=== PATIENT | male | born 1965 | race Caucasian/White ===

== ENCOUNTER 2017-09-02 20:34 | Inpatient (IN) | payer MEDICARE ==
[~2017-09-02] VITALS: Ht 188 cm; Wt 186.0 kg
--- NOTE | ~2017-09-02 | PR ---
[place], [place] PROGRESS NOTE NAME: BENSON LANDA UNIT #: [id number] ROOM: 501 DOCTOR: AARON LARA MD BIRTHDATE: [birth year] DOS: 09/06/2017 SUBJECTIVE: The patient denies any fever or chills. No nausea, vomiting, tolerating IV antibiotics. CT images reviewed, discussed with the patient, waiting for placement. REVIEW OF SYSTEMS: A 10-point review of systems has been done. Pertinent negative and positive has been included in HPI, rest are noncontributory. PHYSICAL EXAMINATION: VITAL SIGNS: Noted stable. GENERAL: The patient is alert, oriented times 3, not in acute distress. HEENT: Atraumatic, normocephalic. PERRLA, EOMI. RESPIRATORY: Air entry bilaterally equal. No wheeze or crackles. CARDIOVASCULAR: S1, S2 normal. No murmur, rubs or gallop. ABDOMEN: Soft, nontender, nondistended. Bowel sounds present in 4 quadrants. EXTREMITIES: Bilateral lower extremity, extreme swelling secondary to chronic lymphedema. Right lower extremity around 3/5 cm irregular ulcer noted over the plantar aspect of the foot with relatively clean base nonfoul smelling surrounding cellulitis noted. Incision site, no drainage. No probe to bone is noted. NEUROLOGIC: Grossly intact. LABORATORY DATA AND IMAGING: Noted mentioned in HPI. ASSESSMENT AND PLAN: 1. Left foot ulcer, chronic, nonhealing with secondary bacterial infection with E. coli and MRSA. 2. Asymptomatic bacteriuria with Klebsiella pneumoniae. PLAN: At this time, discontinue IV of antibiotic, doxycycline 100 mg twice a day plus amoxicillin 875 mg p.o. b.i.d., both for 10 days. Scripts placed in the chart. No treatment for the urinary tract infection. The patient is supposed to go home and follow up with infectious disease clinic in [place] as well as podiatry. [place], [place] PROGRESS NOTE NAME: BENSON LANDA UNIT #: [id number] ROOM: [facility] DOCTOR: AARON LARA MD BIRTHDATE: [birth year] Latia Lara MD CM:PNTRANS [id number] AARON LARA MD 09/07/176 interface
--- NOTE | ~2017-09-02 | PR ---
[place], [place] PROGRESS NOTE NAME: BENSON LANDA [id number] UNIT #: [id number] ROOM: 501 DOCTOR: AARON LARA MD BIRTHDATE: [birth year] DOS: 09/05/2017 SUBJECTIVE: Currently, the patient denies any fever or chills. No nausea or vomiting, no diarrhea. He has been tolerating IV antibiotics. He underwent a CT of his right foot without contrast as he was unable to fit in the MRI machine. REVIEW OF SYSTEMS: A 10-point review of systems has been done. Pertinent negative positives has included in HPI, rest are noncontributory. PHYSICAL EXAMINATION: VITAL SIGNS: Current vitals include temperature of 98.4, pulse rate of 67, respiratory rate 18, blood pressure 137/79, oxygen saturation of 96% on room air. GENERAL: The patient is alert, oriented x 3, not in acute distress. HEENT: Atraumatic, normocephalic. PERRLA, EOMI. RESPIRATORY: Air entry bilaterally equal. No wheeze or crackles. CARDIOVASCULAR: S1, S2 normal, no murmurs, rubs or gallops. ABDOMEN: Soft, nontender, nondistended. Bowel sounds present in 4 quadrants. EXTREMITIES: Bilateral lower extremities, extreme swelling secondary to chronic lymphedema. Right lower extremity around 3/5 cm irregular ulcer noted over the plantar aspect of the foot with relatively cleanly-based non-foul smelling surrounding cellulitis noted. Incision site, no drainage. No [id number] is noted. NEUROLOGIC: Grossly intact. LABORATORY DATA: WBC count of 5.7, hemoglobin of 11.7, platelets 212, creatinine 1.4, GFR more than 60. IMAGING: Noted and mentioned in HPI. Imaging noted of the foot CT showing advanced degenerative changes of the foot with multifocal chronic deformities or joint effusion. No distinct abscess or acute osseous erosions identified to suggest osteomyelitis. Suggested MRI. ASSESSMENT: 1. Left foot ulcer, chronic, nonhealing with secondary bacterial infection. Wound cultures from September 02 had Gram stain with no WBCs, gram-positive cocci in pairs and clusters, few negative bacilli, finalized as methicillin-resistant Staphylococcus aureus and Escherichia coli. CT scan of the foot, although without contrast shows degenerative changes. 2. Suspected urinary tract infection. Urinalysis shows pyuria. Urine cultures, Klebsiella pneumoniae, pansensitive. PLAN: At this time, the ulcer has minimal depth, no probe to bone. Chronic degenerative changes seen in the CT scan could be old. He has a history of treatment with acute osteomyelitis in [place] with multiple antibiotics for a longer duration 3-4 years ago. No details available at this time. At this time, I will treat his skin and soft tissue infection while Staph aureus. He is currently on vancomycin. We will choose doxycycline 100 mg twice [place], [place] PROGRESS NOTE NAME: BENSON LANDA [facility] [id number] UNIT #: [id number] ROOM: [facility] [place] DOCTOR: MARCO CORNEJO,AARON BIRTHDATE: [birth year] a day plus amoxicillin 875 mg twice 2 weeks, needs proper wound care, offloading, close follow up with Podiatry and Infectious Disease. For his UTI, also the patient is on amoxicillin and his Klebsiella pneumoniae is pansensitive. Rest of the medical management plus primary team. Latia Lara MD CM:PNTRANS AARON LARA MD 09/06/1748 interface
--- NOTE | ~2017-09-02 | EKG ---
[place], [place] ELECTROCARDIOGRAM REPORT NAME: BENSON LANDA UNIT #: [id number] [place]: [facility] [facility] [place] DOCTOR: NIA CORNEJO,ALEX BIRTHDATE: [birth year] DOS: 09/02/2017 TIME: 2100 hours. IMPRESSION: 1. Sinus rhythm. 2. Poor R wave progression. 3. Left axis deviation. 4. Baseline artifacts. 5. Normal QT interval. ALEX KRAMER MD CM:EKGRPT:ELECTROCARDIOGRAM REPORT [id number] ALEX KRAMER MD
--- NOTE | ~2017-09-02 | CON ---
[place], [place] REPORT OF CONSULTATION NAME: [facility]SON LANDA [id number] UNIT #: [id number] ROOM: [facility] DOCTOR: GERTRUDE HATFIELD DPM BIRTHDATE: [birth year] DOS: 09/03/2017 SUBJECTIVE: The patient presents as a 51-year-old male with chief complaint of an ulceration to plantar right foot. The patient had been a patient at our office with Dr. Salazar. The patient thinks the ulceration at the bottom of the foot started in June; however, he stated it did not ulcerate until July. When asking the patient why he did not have the ulceration checked sooner, he stated he did not want to go into the hospital. The patient has a history of noncompliance. PAST MEDICAL HISTORY: Arterial occlusion of lower extremity, asthma, diabetic neuropathy, history of osteomyelitis, history of pulmonary embolism, hyperlipidemia, hypertension, morbid obesity, BMI of 50 to 59.9, osteoarthritis of right knee, type 2 diabetes, hyperglycemia. PAST SURGICAL HISTORY: Foot surgery. SOCIAL HISTORY: Denies alcohol, illicit drug use or smoking. FAMILY HISTORY: Father at age 77 of lung CA. Mother, history of dementia, at age 73. ALLERGIES: History of allergies to SULFA from BACTRIM and TRIMETHOPRIM from BACTRIM, which caused swelling. PHYSICAL EXAMINATION: LOWER EXTREMITY EXAMINATION: Pedal pulses diminished. Decreased epicritic sensations. Ulceration noted to the plantar aspect of the right foot, extending from the heel to the MPJs. The ulceration has minimal depth, is fibrotic in nature. There is localized erythema. There are no signs of fluctuance, no signs of abscess, no signs of purulent drainage or sinus tract. The patient has +3 edema, bilateral lower extremity. ASSESSMENT: Right foot cellulitis with chronic diabetic foot ulceration and infection. PLAN: Evaluation and management. Infectious Disease has the patient on vancomycin and Zosyn. We will continue with local wound care. Ordered MRI of both the foot and ankle due to the length of the ulceration encompassing the forefoot and rearfoot. We will see the patient tomorrow or Tuesday depending on when the results of the MRI are done and formulate treatment plan accordingly. I had a long discussion with the patient that he is at high risk for limb loss due to his noncompliance and ignoring the ulcerations. I discussed with the patient he should have had the ulceration seen as soon as it developed and he is putting his foot and lower extremity at risk for amputation. The patient verbalized that he understood this. The patient's venous Doppler was negative for DVT. Arterial Doppler was ordered, but the results are not available at this present time. Again, the radiographs showed extensive chronic changes, but no definitive acute cortical bone destruction. However, due to the long-standing ulceration, we will obtain MRIs for further evaluation and treat [place], [place] REPORT OF CONSULTATION NAME: BENSON LANDA [place] UNIT #: [id number] ROOM: [facility] DOCTOR: GERTRUDE HATFIELD DPM BIRTHDATE: [birth year] the patient accordingly. GERTRUDE HATFIELD DPM CM:CONSTR:REPORT OF CONSULTATION 03 09/03/171926 interface
--- NOTE | ~2017-09-02 | PR ---
[place], [place] PROGRESS NOTE NAME: BENSON LANDA [facility] #: [id number] UNIT #: [id number] ROOM: [facility] DOCTOR: GERTRUDE HATFIELD DPM BIRTHDATE: [birth year] DOS: 09/06/2017 SUBJECTIVE: The patient was seen for a followup of ulceration with cellulitis, plantar right foot. OBJECTIVE: Ulceration, plantar, right foot x 2; plantar arch approximately 5 cm x 2 cm and 1-cm ulceration proximally. No signs of purulent drainage or foul odor. There was local granular base noted. No signs of sinus tract or abscess. Results of the CT scan of the right foot revealed advanced degenerative changes of the foot with multifocal chronic deformities and joint effusion. No distinct abscess or acute osseous erosion. No signs of osteomyelitis. Right ankle CT revealed diffuse soft tissue swelling of the ankle with degenerative change. No underlying osteomyelitis. ASSESSMENT: Cellulitis and ulceration, plantar aspect, right foot. PLAN: Continue local wound care, continue antibiotics per Infectious Disease. Reviewed the results with the patient. The patient does not require surgical intervention at this time. We will continue conservative local wound care and will be seen by Dr. Salazar tomorrow. GERTRUDE HATFIELD DPM CM:MARINO [id number] GERTRUDE HATFIELD DPM 09/06/172233 interface
--- NOTE | ~2017-09-02 | CON ---
[place], [place] REPORT OF CONSULTATION [id number] UN[facility] #: [id number] ROOM: [facility] DOCTOR: ELEAZAR ROBBINS,SEPTEMBER BIRTHDATE: [birth year] DOS: HISTORY OF PRESENT ILLNESS: The patient is a 51-year-old morbidly obese male who was admitted from home with right foot swelling, erythema and foul odor. He was started on vancomycin and Zosyn for right diabetic foot infection. He has had prior issues and had debridement and resection of bilateral calcaneus previously some time ago. He states he was seen by fur weigher in June, who shaved down his callus and he eventually ended up with an open wound over the right plantar portion of his foot. He was previously following with Dr. Conteh in the wound clinic possibly in May. He has had no fevers or chills, but came in due to worsening odor from the foot that did not resolve with cleaning. ID is consulted for right foot cellulitis and diabetic foot infection. He has had an ultrasound of the lower extremities that was negative for DVT. It appears arterial Doppler studies are already ordered. PAST MEDICAL HISTORY: As above as well as prior arterial occlusion in the lower extremity, asthma, diabetic neuropathy, osteomyelitis, PE, hyperlipidemia, hypertension, morbid obesity, osteoarthritis of right knee, diabetes for at least 18 years. SOCIAL HISTORY: Nonsmoker, nondrinker, no illicit drug use. FAMILY MEDICAL HISTORY: Father from lung cancer at the age of 77. Mother at the age of 73 from dementia. ALLERGIES: Include BACTRIM. CURRENT MEDICATIONS: Procardia, Zanaflex, Hytrin, Zestril, Imdur, Levemir, heparin, Neurontin, Catapres, Coreg, vancomycin, Zosyn, Restoril, Dulcolax, Payne, Tylenol. LABORATORY DATA: Wound culture from the right foot Gram stain with Gram-positive cocci in clusters and Gram-negative rods. Culture is pending. Blood and urine cultures negative thus far. WBC 6.6, platelets 205, BUN 12, creatinine 1.18. LFTs within normal limits. C-reactive protein 0.41. Lactic acid 1.8. REVIEW OF SYSTEMS: As above in history of present illness. No fevers or chills. No nausea, vomiting, no diarrhea, no rash or itch. No cough or shortness of breath. No headache or dizziness. No chest pain. He does have peripheral neuropathy. Denies any pain. He did approximately 4 weeks ago have fevers and chills for approximately 4 days and onset of upper respiratory symptoms. He continues with occasional nonproductive cough. Has chronic significant lower extremity edema as well as deformity of the lower extremities due to Charcot foot deformity and prior surgeries. Further review of systems unremarkable. [place], [place] REPORT OF CONSULTATION NAME: BENSON LANDA UNIT #: [id number] ROOM: [facility] DOCTOR: ELEAZAR ROBBINS,SEPTEMBER BIRTHDATE: [birth year] PHYSICAL EXAMINATION: VITAL SIGNS: Temperature 98.2, pulse 80, respirations 20, BP 156/82. GENERAL: A 51-year-old morbidly obese, pleasant, male in no acute distress. HEAD, EYES, NOSE AND THROAT: Normocephalic, no thrush. NECK: Supple. LUNGS: Clear to auscultation bilaterally. Respirations even and unlabored. HEART: Regular rhythm. No murmur appreciated. ABDOMEN: Soft, obese, nontender, no masses. EXTREMITIES: +3 to 4 edema bilateral lower extremities. Right plantar foot with moderate size superficial wounds, pale, pink and fibrotic, minimal depth, has surrounding erythema of the plantar portion of the foot. Skin is otherwise, warm, dry, free of rashes. He is missing his right fifth toe and has scarring on both feet. ASSESSMENT: Right foot cellulitis and diabetic foot ulcer infection. PLAN: Continue vancomycin and Zosyn. Follow up on his wound culture. Dr. Euceda has been consulted. Would recommend Santyl dressing until he is seen by podiatry; however, Santyl is unavailable; therefore, we will use Medihoney dressing and cover with Mepilex daily until seen by podiatry. We would recommend MRI given the chronicity of the wound on Tuesday when available to evaluate for possible osteomyelitis. Continue the vancomycin and Zosyn. Case discussed with Dr. Michael Benson. ADDENDUM After reviewing the chart, labs and microbiology, I agree with the above plans as described on the patient. We will follow the patient up clinically and adjust accordingly. SEPTEMBER ROSENDO BUSH MICHAEL BENSON MD CM:CONSTR:REPORT OF CONSULTATION 1546 09/04/17 0216 interface
[~2017-09-02 20:34] MED LIST: ALAVERT10 M1 PO; AVINZA PO; AVINZA45 MG PO; BISOPROLOL5 MG PO; CLONIDINE0.3 MG PO; COLACE100 MG PO; COREG12.5 MG PO; COREG25 MG PO; ENALAPRIL10 MG PO; FUROSEMIDE20 MG PO; GABAPENTIN100 M1 PO; GLIPIZIDE XL10 MG PO; HYDRALAZINE100 MG PO; HYDROCHLOROTHIA25 MG PO; INSULIN R; K-DUR 20MEQ20 MEQ PO; LISINOPRIL/HCTZ1 TA1 PO; METFORMIN500 MG PO; MS CONTIN30 MG PO; NORVASC10 MG PO; NORVASC5 MG PO; NOVOLOG 701 UNIT/0.0 SC; PERCOCET 325 MG1 TA7 PO; PHOSLO667 M1 PO; PRAVACHOL20 MG PO; PRINIVIL20 M1 PO; SPIRONOLACTONE25 MG PO; TERAZOSIN HCL5 M1 PO; VICODIN 5/500 505 MG PO; ZEBETA5 MG PO
[2017-09-02 20:35] VITALS: BP 172/85
[2017-09-02] MEDS ORDERED: 'CLONIDINE0.1 MG PO (20:41)
[2017-09-02] MEDS ORDERED: NOVOLOG FL100 UNIT/1 SQ (20:41)
[2017-09-02] MEDS ORDERED: NIFEDIPINE ER30 M1 PO (20:42)
[2017-09-02] MEDS ORDERED: ALDACTONE25 MG PO (20:42)
[2017-09-02] MEDS ORDERED: LISINOPRIL20 MG PO (20:42)
[2017-09-02] MEDS ORDERED: IMDUR SA60 M1 PO (20:42)
[2017-09-02] MEDS ORDERED: METFORMIN HCL1000 MG PO (20:43)
[2017-09-02] MEDS ORDERED: GABAPENTIN100 M2 PO (20:43)
[2017-09-02] MEDS ORDERED: FUROSEMIDE80 MG PO (20:43)
[2017-09-02] MEDS ORDERED: GLIPIZIDE5 MG PO (20:43)
[2017-09-02] MEDS ORDERED: TIZANIDINE HCL2 MG PO (20:44)
[2017-09-02] MEDS ORDERED: CARVEDILOL12.5 MG PO (20:44)
[2017-09-02] MEDS ORDERED: LEVEMIR FL100 UNIT/1 SQ (20:45)
[2017-09-02 21:37] LABS: ACT PARTIAL THROMBO TIME 20.6 SECONDS (20.8-31.5); INTERNATIONAL NORM RATIO 0.9 (2.0-3.5)
[2017-09-02 21:40] LABS: ALBUMIN 2.5 gm/dl (3.1-4.5); ALKALINE PHOSPHATASE 72 U/L (45-117); BUN 13 mg/dl (7-24); CHLORIDE 106 mmol/L (98-107); CREATININE 1.42 mg/dL (0.70-1.30); POTASSIUM 4.3 mmol/L (3.5-5.1); SGOT/AST 45 IU/L (3-35); SGPT/ALT 49 U/L (12-78); SODIUM 139 mmol/L (136-145); TOTAL PROTEIN 6.9 gm/dL (6.4-8.2)
[2017-09-02 21:42] LABS: TROPONIN I < 0.015 ng/ml (<0.045)
[2017-09-02 21:46] LABS: THYROID STIM HORMONE (HS) 0.912 uIU/ml (0.358-4.75)
[2017-09-02 22:06] LABS: BASO % 0.4 % (0.0-1.0); EOS # 0.2 10*3/uL (0.0-0.4); EOS % 3.2 % (1.0-4.0); HEMATOCRIT 35.6 % (42.0-52.0); HEMOGLOBIN 12.2 g/dl (14.0-18.0); LYMPH # 1.6 10*3/uL (1.3-4.4); LYMPH % 20.8 % (27.0-41.0); MEAN CELL VOLUME 96.5 fl (80.0-94.0); MEAN CORPUSCULAR HGB 33.1 pg (27.0-31.0); MEAN CORPUSCULAR HGB CONC 34.3 g/dl (33.0-37.0); MEAN PLATELET VOLUME 10.5 fl (9.6-12.3); MONO # 0.4 10*3/uL (0.1-1.0); MONO % 5.8 % (3.0-9.0); NEUT # 5.1 10*3/uL (2.3-7.9); NEUT % 68.9 % (47.0-73.0); PLATELET COUNT AUTOMATED 237 10*3/uL (130-400); RED BLOOD COUNT 3.69 10*6/uL (4.50-5.90); RED CELL DISTRI WIDTH 12.9 % (0-14.5); WHITE BLOOD COUNT 7.5 10*3/uL (4.8-10.8)
[2017-09-02 22:09] VITALS: BP 154/93
[2017-09-02 22:13] LABS: BILIRUBIN NEGATIVE (NEGATIVE); BLOOD 2+ (NEGATIVE); CLARITY CLOUDY (CLEAR); COLOR YELLOW (YELLOW); GLUCOSE 1+ (NEGATIVE); KETONE NEGATIVE (NEGATIVE); LEUKO ESTERASE 1+ (NEGATIVE); NITRITE NEGATIVE (NEGATIVE); SPECIFIC GRAVITY 1.025 (1.005-1.030); UROBILINOGEN 0.2 E.U./dl (0.2-1.0)
[2017-09-02 22:18] LABS: BACTERIA 2+; EPITHELIAL CELLS 0-2; RBC TNTC rbc/hpf (0-2); WBC TNTC wbc/hpf (0-5)
[2017-09-02 22:21] LABS: URINE AMPHETAMINES < 1000 (1000ng/ml); URINE BARBITURATES < 200 (200ng/ml); URINE BENZODIAZEPINES < 200 (200ng/ml); URINE CANNABINOIDS (THC) < 50 (50ng/ml); URINE COCAINE < 300 (300ng/ml); URINE METHADONE < 300 (300ng/ml); URINE OPIATES < 300 (300ng/ml); URINE PHENCYCLIDINE < 25 (25ng/ml)
[2017-09-02 22:30] VITALS: BP 154/93
[2017-09-02] MEDS ORDERED: LISINOPRIL30 MG PO (22:50)
[2017-09-02] MEDS ORDERED: ISOSORBIDE MON120 MG PO (22:56)
[2017-09-02] MEDS ORDERED: NUCYNTA100 MG PO (23:03)
[2017-09-02] MEDS ORDERED: MORPHINE SULFAT20 M2 PO (23:05)
[2017-09-02] MEDS ORDERED: TERAZOSIN5 MG PO (23:09)
[2017-09-03 06:04] LABS: BASO % 0.6 % (0.0-1.0); EOS # 0.3 10*3/uL (0.0-0.4); HEMATOCRIT 33.9 % (42.0-52.0); HEMOGLOBIN 11.3 g/dl (14.0-18.0); LYMPH # 1.6 10*3/uL (1.3-4.4); LYMPH % 24.1 % (27.0-41.0); MEAN CELL VOLUME 96.9 fl (80.0-94.0); MEAN CORPUSCULAR HGB 32.3 pg (27.0-31.0); MEAN CORPUSCULAR HGB CONC 33.3 g/dl (33.0-37.0); MEAN PLATELET VOLUME 9.9 fl (9.6-12.3); MONO # 0.4 10*3/uL (0.1-1.0); MONO % 5.9 % (3.0-9.0); NEUT # 4.2 10*3/uL (2.3-7.9); NEUT % 64.2 % (47.0-73.0); PLATELET COUNT AUTOMATED 205 10*3/uL (130-400); RED CELL DISTRI WIDTH 13.1 % (0-14.5); WHITE BLOOD COUNT 6.6 10*3/uL (4.8-10.8)
[2017-09-03 06:17] LABS: ALBUMIN 2.2 gm/dl (3.1-4.5); BUN 12 mg/dl (7-24); CHLORIDE 110 mmol/L (98-107); CHOLESTEROL 86 mg/dL (<200); CREATININE 1.18 mg/dL (0.70-1.30); PHOSPHOROUS 2.9 mg/dL (2.5-4.9); POTASSIUM 3.7 mmol/L (3.5-5.1); SGOT/AST 31 IU/L (3-35); SGPT/ALT 43 U/L (12-78); SODIUM 141 mmol/L (136-145); TRIGLYCERIDES 116 mg/dl (<150); VLDL CHOLESTEROL 23 mg/dL (6-40)
[2017-09-03 06:24] LABS: ALKALINE PHOSPHATASE 63 U/L (45-117); FREE T4 1.24 ng/dl (0.76-1.46); HDL CHOLESTEROL 31 mg/dl (40-60); LDL CHOLESTEROL 32 mg/dL (9-159); TOTAL PROTEIN 6.2 gm/dL (6.4-8.2)
[2017-09-03 07:35] LABS: VITAMIN D, 25-HYDROXY 26.6 ng/mL (30-100)
[2017-09-03 08:00] VITALS: BP 156/82
[2017-09-03 12:00] VITALS: BP 135/58
[2017-09-03 16:00] VITALS: BP 143/74
[2017-09-03 20:00] VITALS: BP 153/78
[2017-09-04 00:14] VITALS: BP 111/88
[2017-09-04 08:00] VITALS: BP 151/67
[2017-09-04 08:28] LABS: BASO % 0.5 % (0.0-1.0); EOS # 0.4 10*3/uL (0.0-0.4); EOS % 6.4 % (1.0-4.0); HEMATOCRIT 34.4 % (42.0-52.0); HEMOGLOBIN 11.6 g/dl (14.0-18.0); LYMPH # 1.8 10*3/uL (1.3-4.4); LYMPH % 29.7 % (27.0-41.0); MEAN CELL VOLUME 96.6 fl (80.0-94.0); MEAN CORPUSCULAR HGB 32.6 pg (27.0-31.0); MEAN CORPUSCULAR HGB CONC 33.7 g/dl (33.0-37.0); MEAN PLATELET VOLUME 9.6 fl (9.6-12.3); MONO # 0.3 10*3/uL (0.1-1.0); MONO % 5.4 % (3.0-9.0); NEUT # 3.4 10*3/uL (2.3-7.9); PLATELET COUNT AUTOMATED 202 10*3/uL (130-400); RED BLOOD COUNT 3.56 10*6/uL (4.50-5.90); RED CELL DISTRI WIDTH 12.8 % (0-14.5); WHITE BLOOD COUNT 5.9 10*3/uL (4.8-10.8)
[2017-09-04 08:40] LABS: BUN 12 mg/dl (7-24); CHLORIDE 107 mmol/L (98-107); CREATININE 1.38 mg/dL (0.70-1.30); SODIUM 138 mmol/L (136-145)
[2017-09-04 12:00] VITALS: BP 118/67
[2017-09-04 16:00] VITALS: BP 130/66
[2017-09-04 20:00] VITALS: BP 130/66
[2017-09-05] VITALS: BP 144/80
[2017-09-05 06:37] LABS: BASO % 0.7 % (0.0-1.0); EOS # 0.3 10*3/uL (0.0-0.4); EOS % 5.8 % (1.0-4.0); HEMATOCRIT 35.1 % (42.0-52.0); HEMOGLOBIN 11.7 g/dl (14.0-18.0); LYMPH # 1.7 10*3/uL (1.3-4.4); LYMPH % 29.7 % (27.0-41.0); MEAN CORPUSCULAR HGB 32.3 pg (27.0-31.0); MEAN CORPUSCULAR HGB CONC 33.3 g/dl (33.0-37.0); MEAN PLATELET VOLUME 10.1 fl (9.6-12.3); MONO # 0.3 10*3/uL (0.1-1.0); MONO % 5.6 % (3.0-9.0); NEUT # 3.3 10*3/uL (2.3-7.9); NEUT % 56.8 % (47.0-73.0); PLATELET COUNT AUTOMATED 212 10*3/uL (130-400); RED BLOOD COUNT 3.62 10*6/uL (4.50-5.90); RED CELL DISTRI WIDTH 12.9 % (0-14.5); WHITE BLOOD COUNT 5.7 10*3/uL (4.8-10.8)
[2017-09-05 07:01] LABS: BUN 12 mg/dl (7-24); CHLORIDE 107 mmol/L (98-107); CREATININE 1.41 mg/dL (0.70-1.30); POTASSIUM 4.1 mmol/L (3.5-5.1); SODIUM 140 mmol/L (136-145)
[2017-09-05 08:00] VITALS: BP 146/79
[2017-09-05 12:00] VITALS: BP 148/80
[2017-09-05 16:00] VITALS: BP 144/78
[2017-09-05 20:00] VITALS: BP 137/79; BP 137/796
[2017-09-06] VITALS: BP 145/74
[2017-09-06 08:00] VITALS: BP 141/82
[2017-09-06 12:00] VITALS: BP 141/90
[2017-09-06 16:00] VITALS: BP 138/64
[2017-09-06 20:00] VITALS: BP 142/64
[2017-09-07] VITALS: BP 152/78
[2017-09-07 06:33] LABS: POTASSIUM 4.6 mmol/L (3.5-5.1)
[2017-09-07 06:34] LABS: CREATININE 1.9 mg/dL (0.70-1.30)
[2017-09-07 08:00] VITALS: BP 139/72
[2017-09-07 12:00] VITALS: BP 139/72
[2017-09-07 13:25] LABS: CREATININE 1.83 mg/dL (0.70-1.30)
[2017-09-07] MEDS ORDERED: AMOXICILLIN875 MG PO (15:49)
[2017-09-07] MEDS ORDERED: DOXYCYCLINE MO100 M1 PO (15:49)
[2017-09-07] MEDS ORDERED: VITAMIN D-32000 UNIT PO (15:49)
[2017-09-07 16:00] VITALS: BP 146/74
[2017-09-07 20:00] VITALS: BP 116/84
[2017-09-08] VITALS: BP 141/69
[2017-09-08 07:12] LABS: BASO # 0.1 10*3/uL (0.0-0.1); BASO % 0.9 % (0.0-1.0); EOS # 0.3 10*3/uL (0.0-0.4); EOS % 4.7 % (1.0-4.0); HEMATOCRIT 35.9 % (42.0-52.0); HEMOGLOBIN 12.2 g/dl (14.0-18.0); LYMPH # 1.5 10*3/uL (1.3-4.4); LYMPH % 28.5 % (27.0-41.0); MEAN CELL VOLUME 96.8 fl (80.0-94.0); MEAN CORPUSCULAR HGB 32.9 pg (27.0-31.0); MEAN PLATELET VOLUME 9.5 fl (9.6-12.3); MONO # 0.3 10*3/uL (0.1-1.0); MONO % 5.5 % (3.0-9.0); NEUT # 3.1 10*3/uL (2.3-7.9); NEUT % 58.9 % (47.0-73.0); PLATELET COUNT AUTOMATED 200 10*3/uL (130-400); RED BLOOD COUNT 3.71 10*6/uL (4.50-5.90); RED CELL DISTRI WIDTH 13.1 % (0-14.5); WHITE BLOOD COUNT 5.3 10*3/uL (4.8-10.8)
[2017-09-08 07:29] LABS: BUN 18 mg/dl (7-24); CHLORIDE 105 mmol/L (98-107); CREATININE 1.39 mg/dL (0.70-1.30); POTASSIUM 4.5 mmol/L (3.5-5.1); SODIUM 136 mmol/L (136-145)
[2017-09-08 08:00] VITALS: BP 152/82
[2017-09-08 12:00] VITALS: BP 148/79
== END 2017-09-08 14:15 | disposition home or self-care (01) | DRG 871 ==
LOC: ED 20:34 → 5E 21:59 → EDHOLD 21:59 → 5E 22:06
PROVIDERS: Emergency Medicine Emergency Medical Services; Internal Medicine; Student in an Organized Health Care Education/Training Program
DX: A41.9 Sepsis, unspecified organism (principal); N17.0 Acute kidney failure with tubular necrosis; E43 Unspecified severe protein-calorie malnutrition; N39.0 Urinary tract infection, site not specified; Z68.43 Body mass index [BMI] 50.0-59.9, adult; L97.415 Non-pressure chronic ulcer of right heel and midfoot with muscle involvement without evidence of necrosis; L03.115 Cellulitis of right lower limb; L97.829 Non-pressure chronic ulcer of other part of left lower leg with unspecified severity; E11.621 Type 2 diabetes mellitus with foot ulcer; E11.49 Type 2 diabetes mellitus with other diabetic neurological complication; E66.01 Morbid (severe) obesity due to excess calories; R31.9 Hematuria, unspecified; R74.0 Nonspecific elevation of levels of transaminase and lactic acid dehydrogenase [LDH]; D53.9 Nutritional anemia, unspecified; R79.82 Elevated C-reactive protein (CRP); R80.9 Proteinuria, unspecified; R81 Glycosuria; I10 Essential (primary) hypertension; E11.65 Type 2 diabetes mellitus with hyperglycemia; Z79.4 Long term (current) use of insulin; E78.5 Hyperlipidemia, unspecified; M17.11 Unilateral primary osteoarthritis, right knee; J45.909 Unspecified asthma, uncomplicated; L97.519 Non-pressure chronic ulcer of other part of right foot with unspecified severity; B96.20 Unspecified Escherichia coli [E. coli] as the cause of diseases classified elsewhere; B95.62 Methicillin resistant Staphylococcus aureus infection as the cause of diseases classified elsewhere; B96.1 Klebsiella pneumoniae [K. pneumoniae] as the cause of diseases classified elsewhere; K59.00 Constipation, unspecified; Z88.8 Allergy status to other drugs, medicaments and biological substances; Z79.899 Other long term (current) drug therapy; Z86.711 Personal history of pulmonary embolism; Z82.49 Family history of ischemic heart disease and other diseases of the circulatory system; Z81.8 Family history of other mental and behavioral disorders; Z80.8 Family history of malignant neoplasm of other organs or systems; Z88.2 Allergy status to sulfonamides; Z79.01 Long term (current) use of anticoagulants

== ENCOUNTER → 2017-11-01 | Outpatient (CLI) | payer MEDICARE ==
[~2017-11-01] MED LIST changes: +'CLONIDINE0.1 MG PO; +ALDACTONE25 MG PO; +AMOXICILLIN875 MG PO; +CARVEDILOL12.5 MG PO; +DOXYCYCLINE MO100 M1 PO; +DOXYCYCLINE100 MG PO; +FUROSEMIDE80 MG PO; +GABAPENTIN100 M2 PO; +GLIPIZIDE5 MG PO; +IMDUR SA60 M1 PO; +ISOSORBIDE MON120 MG PO; +LEVEMIR FL100 UNIT/1 SQ; +LISINOPRIL20 MG PO; +LISINOPRIL30 MG PO; +METFORMIN HCL1000 MG PO; +MORPHINE SULFAT20 M2 PO; +NIFEDIPINE ER30 M1 PO; +NOVOLOG FL100 UNIT/1 SQ; +NUCYNTA100 MG PO; +TERAZOSIN5 MG PO; +TIZANIDINE HCL2 MG PO; +VITAMIN D-32000 UNIT PO
== END | disposition home or self-care (01) ==
LOC: RESCLI 04:31
DX: Z09 Encounter for follow-up examination after completed treatment for conditions other than malignant neoplasm (principal); E11.65 Type 2 diabetes mellitus with hyperglycemia; E11.621 Type 2 diabetes mellitus with foot ulcer; L97.519 Non-pressure chronic ulcer of other part of right foot with unspecified severity; I10 Essential (primary) hypertension; M79.2 Neuralgia and neuritis, unspecified; M54.9 Dorsalgia, unspecified; G89.29 Other chronic pain; N40.0 Benign prostatic hyperplasia without lower urinary tract symptoms; R60.9 Edema, unspecified; E55.9 Vitamin D deficiency, unspecified; E66.01 Morbid (severe) obesity due to excess calories; Z79.4 Long term (current) use of insulin

== ENCOUNTER 2017-11-18 14:53 | Inpatient (IN) | payer MEDICARE ==
[~2017-11-18] VITALS: Ht 188 cm; Wt 181.4 kg
--- NOTE | ~2017-11-18 | CON ---
[place], [place] REPORT OF CONSULTATION NAME: BENSON LANDA UNIT #: [id number] ROOM: 518 DOCTOR: LIU TOUREGERTRUDE J BIRTHDATE: [birth year] DOS: 11/19/2017 SUBJECTIVE: The patient presents as a 51-year-old male with a chief complaint of diabetic ulceration to the plantar right foot. The patient was treated previously inhouse and was followed with Dr. Conteh at the office, but has not returned to the office in approximately 2 months. The patient states that the ulceration has not healed since his last admission. Current visit medical problems, acute renal failure, macrocytic anemia, elevated C-reactive protein, elevated sed rate, hyperkalemia, hyponatremia, right foot ulcer, severe protein-calorie malnutrition. PAST MEDICAL PROBLEMS: Arterial occlusion lower extremity, asthma, diabetic neuropathy, history of osteomyelitis, history of pulmonary embolism, hyperlipidemia, hypertension, morbid obesity, osteoarthritis of right knee, type 2 diabetes with hyperglycemia with long-term use of insulin. PAST SURGICAL HISTORY: History of foot surgery. SOCIAL HISTORY: Denies illicit drug use, alcohol or smoking. FAMILY HISTORY: Father at age 77 of lung cancer. Mother at age 73. ALLERGIES: To BACTRIM. PHYSICAL EXAMINATION: EXTREMITIES: Lower extremity examination: Pedal pulses decreased. There is edema, lymphedema to bilateral lower extremities. Decreased epicritic sensations, ulcerations x 2 plantar right arch are full thickness to subcutaneous tissue level. No signs of fluctuance. No signs of deep sinus tract, no signs of acute abscess. Results of the radiographs taken of the right foot revealed advanced degenerative and chronic deformities of the right foot with extensive soft tissue swelling. No definitive erosion noted. ASSESSMENT: Diabetic ulcerations with localized cellulitis, plantar right foot; history of peripheral vascular disease; diabetic neuropathy. PLAN: Evaluation and management. Ordered Bactroban and gauze dressings to be applied daily. Ordered CT scan to compare to previous exam to rule out underlying osteomyelitis. Ordered arterial Doppler bilateral. The patient's previous exam was performed on 09/03/2017 revealed no significant stenotic proximal lesion, severe foot osteosclerosis left. Also ordered venous Doppler bilateral lower extremity. The patient will be seen for followup with Dr. Conteh on Tuesday. [place], [place] REPORT OF CONSULTATION NAME: BENSON LANDA UNIT #: [id number] ROOM: 518 DOCTOR: GERTRUDE HATFIELD DPM BIRTHDATE: [birth year] GERTRUDE HATFIELD DPM CM:CONSTR:REPORT OF CONSULTATION 1101 11/19/17 1201 interface
--- NOTE | ~2017-11-18 | PR ---
[place], [place] PROGRESS NOTE [facility]: [id number] UN[facility] #: [id number] ROOM: 518 DOCTOR: GERTRUDE HATFIELD DPM BIRTHDATE: [birth year] DOS: 11/22/2017 SUBJECTIVE: The patient was seen for followup of chronic plantar right foot ulceration. OBJECTIVE: The ulceration of plantar right foot x 2 are granular and clean. No signs of purulent drainage or foul odor. CT was negative for osteomyelitis. No significant change from previous CT performed in September. ASSESSMENT: Chronic diabetic ulcerations, plantar right foot. PLAN: Evaluation and management. Continue local wound care and offloading. The patient will reappoint for continued care at [facility] with Dr. Conteh. GERTRUDE HATFIELD DPM CM:MARINO [id number] GERTRUDE HATFIELD DPM 11/22/17 1528 interface
--- NOTE | ~2017-11-18 | PR ---
[place], [place] PROGRESS NOTE NAME: BENSON LANDA [facility] #: [id number] UNIT #: [id number] ROOM: 518 DOCTOR: LUCA DASH DPM BIRTHDATE: [birth year] DOS: 11/21/2017 SUBJECTIVE: The patient is seen for followup of a chronic plantar right foot ulcer. I had last seen the patient at the beginning of September, about 2-3 months ago. He never followed up. He was apparently admitted to the hospital and Dr. Euceda saw him on Tuesday. He denies any pain at this time in the foot. OBJECTIVE: Neurovascular status is unchanged. Chronic dependent edema noted bilaterally with negative Homans sign. Plantar right foot has two ulcerations that are actually fairly clean and granular. There are into subcutaneous tissue. No deep sinus tracts. No fluctuance or signs of abscess. No increased temperature. Actually, the foot ulcers are chronic, but they do not look clinically infected. A CT scan was negative for osteomyelitis. ASSESSMENT: Chronic diabetic foot ulcers, right foot; diabetic neuropathy. PLAN: Evaluation and management. Continue with local wound care daily. Continue offloading. Review of CT scan results. We will continue to do wound care while at the hospital to be followed up tomorrow for reevaluation. LUCA DASH DPM CM:MARINO [id number] LUCA DASH DPM 11/28/17 0839 interface
[~2017-11-18 14:53] MED LIST changes: -DOXYCYCLINE100 MG PO
[2017-11-18 14:57] VITALS: BP 136/70
[2017-11-18 16:39] LABS: BASO % 0.5 % (0.0-1.0); EOS # 0.2 10*3/uL (0.0-0.4); EOS % 2.6 % (1.0-4.0); HEMATOCRIT 36.5 % (42.0-52.0); HEMOGLOBIN 12.4 g/dl (14.0-18.0); LYMPH # 1.7 10*3/uL (1.3-4.4); LYMPH % 20.7 % (27.0-41.0); MEAN CELL VOLUME 98.4 fl (80.0-94.0); MEAN CORPUSCULAR HGB 33.4 pg (27.0-31.0); MEAN PLATELET VOLUME 10.3 fl (9.6-12.3); MONO # 0.5 10*3/uL (0.1-1.0); MONO % 6.2 % (3.0-9.0); NEUT # 5.6 10*3/uL (2.3-7.9); NEUT % 69.4 % (47.0-73.0); PLATELET COUNT AUTOMATED 209 10*3/uL (130-400); RED BLOOD COUNT 3.71 10*6/uL (4.50-5.90); RED CELL DISTRI WIDTH 12.8 % (0-14.5); WHITE BLOOD COUNT 8.1 10*3/uL (4.8-10.8)
[2017-11-18 16:50] LABS: INTERNATIONAL NORM RATIO 0.9 (2.0-3.5)
[2017-11-18 16:51] LABS: ALBUMIN 2.8 gm/dl (3.1-4.5); CREATININE 1.91 mg/dL (0.70-1.30); POTASSIUM 5.2 mmol/L (3.5-5.1); TOTAL PROTEIN 6.9 gm/dL (6.4-8.2)
[2017-11-18 18:30] VITALS: BP 145/80
[2017-11-18 20:00] VITALS: BP 145/80
[2017-11-18] MEDS ORDERED: VITAMIN D-32000 UNIT PO (22:37)
[2017-11-19] VITALS: BP 121/54
[2017-11-19 08:00] VITALS: BP 128/88
[2017-11-19 09:17] LABS: BASO % 0.8 % (0.0-1.0); EOS # 0.2 10*3/uL (0.0-0.4); EOS % 4.4 % (1.0-4.0); HEMOGLOBIN 12.5 g/dl (14.0-18.0); LYMPH % 19.5 % (27.0-41.0); MEAN CORPUSCULAR HGB 32.9 pg (27.0-31.0); MEAN CORPUSCULAR HGB CONC 32.9 g/dl (33.0-37.0); MONO # 0.3 10*3/uL (0.1-1.0); MONO % 6.1 % (3.0-9.0); NEUT # 3.6 10*3/uL (2.3-7.9); NEUT % 68.6 % (47.0-73.0); PLATELET COUNT AUTOMATED 176 10*3/uL (130-400); RED CELL DISTRI WIDTH 12.8 % (0-14.5); WHITE BLOOD COUNT 5.3 10*3/uL (4.8-10.8)
[2017-11-19 09:42] LABS: CREATININE 1.63 mg/dL (0.70-1.30); FREE T4 1.2 ng/dl (0.76-1.46); PHOSPHOROUS 3.7 mg/dL (2.5-4.9); POTASSIUM 5.3 mmol/L (3.5-5.1)
[2017-11-19 09:49] LABS: THYROID STIM HORMONE (HS) 2.06 uIU/ml (0.358-4.75)
[2017-11-19 10:20] LABS: VITAMIN D, 25-HYDROXY 19.8 ng/mL (30-100)
[2017-11-19 12:00] VITALS: BP 132/77
[2017-11-19 12:32] LABS: CLARITY CLOUDY (CLEAR); COLOR YELLOW (YELLOW); GLUCOSE TRACE (NEGATIVE)
[2017-11-19 12:33] LABS: BILIRUBIN NEGATIVE (NEGATIVE); BLOOD 1+ (NEGATIVE); KETONE NEGATIVE (NEGATIVE); SPECIFIC GRAVITY 1.015 (1.005-1.030)
[2017-11-19 12:34] LABS: LEUKO ESTERASE 1+ (NEGATIVE); NITRITE NEGATIVE (NEGATIVE); UROBILINOGEN 0.2 E.U./dl (0.2-1.0)
[2017-11-19 12:38] LABS: BACTERIA 3+; WBC TNTC wbc/hpf (0-5)
[2017-11-19 16:00] VITALS: BP 151/69
[2017-11-19 19:00] VITALS: BP 149/72
[2017-11-20] VITALS: BP 130/63
[2017-11-20 05:25] LABS: BASO % 0.5 % (0.0-1.0); EOS # 0.2 10*3/uL (0.0-0.4); EOS % 5.4 % (1.0-4.0); HEMATOCRIT 35.8 % (42.0-52.0); HEMOGLOBIN 12.1 g/dl (14.0-18.0); LYMPH # 0.9 10*3/uL (1.3-4.4); LYMPH % 21.2 % (27.0-41.0); MEAN CELL VOLUME 98.1 fl (80.0-94.0); MEAN CORPUSCULAR HGB 33.2 pg (27.0-31.0); MEAN CORPUSCULAR HGB CONC 33.8 g/dl (33.0-37.0); MEAN PLATELET VOLUME 10.2 fl (9.6-12.3); MONO # 0.3 10*3/uL (0.1-1.0); MONO % 7.5 % (3.0-9.0); NEUT # 2.8 10*3/uL (2.3-7.9); PLATELET COUNT AUTOMATED 155 10*3/uL (130-400); RED BLOOD COUNT 3.65 10*6/uL (4.50-5.90); RED CELL DISTRI WIDTH 12.7 % (0-14.5); WHITE BLOOD COUNT 4.3 10*3/uL (4.8-10.8)
[2017-11-20 05:54] LABS: ALBUMIN 2.4 gm/dl (3.1-4.5); CREATININE 1.53 mg/dL (0.70-1.30); PHOSPHOROUS 4.1 mg/dL (2.5-4.9); POTASSIUM 5.9 mmol/L (3.5-5.1)
[2017-11-20 06:22] LABS: VANCOMYCIN TROUGH 23.3 ug/mL (10-20)
[2017-11-20 08:00] VITALS: BP 127/64
[2017-11-20 12:00] VITALS: BP 136/66
[2017-11-20 12:11] LABS: CREATININE 1.52 mg/dL (0.70-1.30); POTASSIUM 5.5 mmol/L (3.5-5.1)
[2017-11-20 16:00] VITALS: BP 117/51
[2017-11-20 20:00] VITALS: BP 118/55
[2017-11-21] VITALS: BP 121/54
[2017-11-21 07:01] LABS: BASO % 0.4 % (0.0-1.0); EOS # 0.2 10*3/uL (0.0-0.4); EOS % 4.4 % (1.0-4.0); HEMOGLOBIN 12.1 g/dl (14.0-18.0); LYMPH # 1.3 10*3/uL (1.3-4.4); LYMPH % 25.6 % (27.0-41.0); MEAN CELL VOLUME 98.4 fl (80.0-94.0); MEAN CORPUSCULAR HGB 33.1 pg (27.0-31.0); MEAN CORPUSCULAR HGB CONC 33.6 g/dl (33.0-37.0); MEAN PLATELET VOLUME 9.8 fl (9.6-12.3); MONO # 0.4 10*3/uL (0.1-1.0); MONO % 7.1 % (3.0-9.0); NEUT # 3.1 10*3/uL (2.3-7.9); NEUT % 61.3 % (47.0-73.0); PLATELET COUNT AUTOMATED 178 10*3/uL (130-400); RED BLOOD COUNT 3.66 10*6/uL (4.50-5.90); RED CELL DISTRI WIDTH 13.1 % (0-14.5)
[2017-11-21 07:11] LABS: ALBUMIN 2.5 gm/dl (3.1-4.5); CREATININE 1.52 mg/dL (0.70-1.30); PHOSPHOROUS 3.6 mg/dL (2.5-4.9); POTASSIUM 5.3 mmol/L (3.5-5.1)
[2017-11-21 08:00] VITALS: BP 139/68
[2017-11-21 12:00] VITALS: BP 151/74
[2017-11-21 16:00] VITALS: BP 130/68
[2017-11-21 20:00] VITALS: BP 143/71
[2017-11-22] VITALS: BP 130/79
[2017-11-22 06:51] LABS: BUN 26 mg/dl (7-24); CHLORIDE 107 mmol/L (98-107); CREATININE 1.39 mg/dL (0.70-1.30); SODIUM 139 mmol/L (136-145)
[2017-11-22 08:00] VITALS: BP 158/79
[2017-11-22 12:00] VITALS: BP 152/75
[2017-11-22] MEDS ORDERED: VITAMIN D-32000 UNIT PO (15:01)
[2017-11-22] MEDS ORDERED: DOXYCYCLINE100 MG PO (15:01)
[2017-11-22 16:00] VITALS: BP 151/75
== END 2017-11-22 16:51 | disposition other institution (70) | DRG 871 ==
LOC: ED 14:53 → 5E 17:31 → EDHOLD 17:31 → 5E 17:58
PROVIDERS: Internal Medicine; Internal Medicine Hospice and Palliative Medicine; Physician Assistant
DX: A41.9 Sepsis, unspecified organism (principal); N17.0 Acute kidney failure with tubular necrosis; E43 Unspecified severe protein-calorie malnutrition; I74.3 Embolism and thrombosis of arteries of the lower extremities; E87.1 Hypo-osmolality and hyponatremia; L03.115 Cellulitis of right lower limb; L97.512 Non-pressure chronic ulcer of other part of right foot with fat layer exposed; E87.5 Hyperkalemia; D53.9 Nutritional anemia, unspecified; R79.82 Elevated C-reactive protein (CRP); R70.0 Elevated erythrocyte sedimentation rate; E66.01 Morbid (severe) obesity due to excess calories; E11.65 Type 2 diabetes mellitus with hyperglycemia; J45.909 Unspecified asthma, uncomplicated; E11.49 Type 2 diabetes mellitus with other diabetic neurological complication; E78.2 Mixed hyperlipidemia; E83.41 Hypermagnesemia; E11.621 Type 2 diabetes mellitus with foot ulcer; E11.51 Type 2 diabetes mellitus with diabetic peripheral angiopathy without gangrene; N18.3 Chronic kidney disease, stage 3 (moderate); I12.9 Hypertensive chronic kidney disease with stage 1 through stage 4 chronic kidney disease, or unspecified chronic kidney disease; E11.22 Type 2 diabetes mellitus with diabetic chronic kidney disease; Z22.322 Carrier or suspected carrier of Methicillin resistant Staphylococcus aureus; Z87.39 Personal history of other diseases of the musculoskeletal system and connective tissue; Z79.4 Long term (current) use of insulin; Z86.711 Personal history of pulmonary embolism; Z88.8 Allergy status to other drugs, medicaments and biological substances; Z88.2 Allergy status to sulfonamides; Z79.899 Other long term (current) drug therapy; Z80.1 Family history of malignant neoplasm of trachea, bronchus and lung; Z81.8 Family history of other mental and behavioral disorders; Z82.49 Family history of ischemic heart disease and other diseases of the circulatory system; Z88.1 Allergy status to other antibiotic agents

== ENCOUNTER → 2018-01-05 | Outpatient (CLI) | payer MEDICARE ==
[~2018-01-05] MED LIST changes: +DOXYCYCLINE100 MG PO
== END | disposition home or self-care (01) ==
LOC: RESCLI 03:39
DX: Z09 Encounter for follow-up examination after completed treatment for conditions other than malignant neoplasm (principal); I10 Essential (primary) hypertension; E11.65 Type 2 diabetes mellitus with hyperglycemia; L97.512 Non-pressure chronic ulcer of other part of right foot with fat layer exposed; N17.0 Acute kidney failure with tubular necrosis; E87.1 Hypo-osmolality and hyponatremia; E87.5 Hyperkalemia; G89.29 Other chronic pain; N40.0 Benign prostatic hyperplasia without lower urinary tract symptoms; E55.9 Vitamin D deficiency, unspecified; E66.01 Morbid (severe) obesity due to excess calories; M79.2 Neuralgia and neuritis, unspecified; M54.9 Dorsalgia, unspecified; R60.9 Edema, unspecified; Z79.4 Long term (current) use of insulin; Z79.899 Other long term (current) drug therapy; Z79.84 Long term (current) use of oral hypoglycemic drugs; Z88.8 Allergy status to other drugs, medicaments and biological substances

== ENCOUNTER → 2018-02-22 | Outpatient (CLI) | payer MEDICARE ==
[2018-02-22 15:19] LABS: CREATININE 1.85 mg/dL (0.70-1.30)
== END | disposition home or self-care (01) ==
LOC: LAB 13:21
PROVIDERS: Student in an Organized Health Care Education/Training Program
DX: I12.9 Hypertensive chronic kidney disease with stage 1 through stage 4 chronic kidney disease, or unspecified chronic kidney disease (principal); E11.22 Type 2 diabetes mellitus with diabetic chronic kidney disease; N18.3 Chronic kidney disease, stage 3 (moderate); N17.0 Acute kidney failure with tubular necrosis; E11.65 Type 2 diabetes mellitus with hyperglycemia; E66.01 Morbid (severe) obesity due to excess calories; Z79.4 Long term (current) use of insulin; Z79.899 Other long term (current) drug therapy

== ENCOUNTER → 2018-03-23 | Outpatient (CLI) | payer MEDICARE ==
[2018-03-23 15:51] LABS: CREATININE 1.74 mg/dL (0.70-1.30)
== END | disposition home or self-care (01) ==
LOC: RESCLI 02:41
PROVIDERS: Student in an Organized Health Care Education/Training Program
DX: I12.9 Hypertensive chronic kidney disease with stage 1 through stage 4 chronic kidney disease, or unspecified chronic kidney disease (principal); E11.22 Type 2 diabetes mellitus with diabetic chronic kidney disease; E11.65 Type 2 diabetes mellitus with hyperglycemia; N18.3 Chronic kidney disease, stage 3 (moderate); N40.0 Benign prostatic hyperplasia without lower urinary tract symptoms; G89.29 Other chronic pain; L97.512 Non-pressure chronic ulcer of other part of right foot with fat layer exposed; E55.9 Vitamin D deficiency, unspecified; E66.01 Morbid (severe) obesity due to excess calories; M79.2 Neuralgia and neuritis, unspecified; M54.9 Dorsalgia, unspecified; R60.9 Edema, unspecified; Z79.899 Other long term (current) drug therapy; Z79.4 Long term (current) use of insulin; Z79.84 Long term (current) use of oral hypoglycemic drugs; Z88.8 Allergy status to other drugs, medicaments and biological substances

== ENCOUNTER → 2018-06-13 | Outpatient (CLI) | payer MEDICARE ==
[2018-06-13 16:58] LABS: ALBUMIN 2.1 gm/dl (3.1-4.5); CREATININE 1.98 mg/dL (0.70-1.30); POTASSIUM 3.6 mmol/L (3.5-5.1)
== END | disposition home or self-care (01) ==
PROVIDERS: Internal Medicine
DX: I51.7 Cardiomegaly (principal); R06.02 Shortness of breath

== ENCOUNTER → 2018-10-26 | Outpatient (CLI) | payer MEDICARE ==
[2018-10-26 13:16] LABS: BASO % 0.6 % (0.0-1.0); EOS # 0.3 10*3/uL (0.0-0.4); EOS % 3.9 % (1.0-4.0); HEMOGLOBIN 13.2 g/dl (14.0-18.0); LYMPH # 1.6 10*3/uL (1.3-4.4); LYMPH % 22.6 % (27.0-41.0); MEAN CELL VOLUME 97.7 fl (80.0-94.0); MEAN CORPUSCULAR HGB 33.1 pg (27.0-31.0); MEAN CORPUSCULAR HGB CONC 33.8 g/dl (33.0-37.0); MEAN PLATELET VOLUME 10.4 fl (9.6-12.3); MONO # 0.4 10*3/uL (0.1-1.0); MONO % 5.6 % (3.0-9.0); NEUT # 4.7 10*3/uL (2.3-7.9); NEUT % 66.7 % (47.0-73.0); PLATELET COUNT AUTOMATED 203 10*3/uL (130-400); RED BLOOD COUNT 3.99 10*6/uL (4.50-5.90); RED CELL DISTRI WIDTH 12.6 % (0-14.5)
[2018-10-26 13:50] LABS: ALBUMIN 1.7 gm/dl (3.1-4.5); CREATININE 2.28 mg/dL (0.70-1.30); POTASSIUM 3.6 mmol/L (3.5-5.1); TOTAL PROTEIN 5.5 gm/dL (6.4-8.2)
[2018-10-26 14:29] LABS: VITAMIN D, 25-HYDROXY 17.1 ng/mL (30-100)
== END | disposition home or self-care (01) ==
LOC: RESCLI 01:26
PROVIDERS: Student in an Organized Health Care Education/Training Program
DX: N40.0 Benign prostatic hyperplasia without lower urinary tract symptoms (principal); I10 Essential (primary) hypertension; E55.9 Vitamin D deficiency, unspecified; M79.2 Neuralgia and neuritis, unspecified; M19.90 Unspecified osteoarthritis, unspecified site; Z79.899 Other long term (current) drug therapy; Z79.4 Long term (current) use of insulin

== ENCOUNTER → 2018-11-29 | Outpatient (CLI) | payer MEDICARE, MEDICAID | END | disposition home or self-care (01) | LOC: RESCLI 00:05 | DX: N40.0 Benign prostatic hyperplasia without lower urinary tract symptoms (principal); E11.621 Type 2 diabetes mellitus with foot ulcer; I12.9 Hypertensive chronic kidney disease with stage 1 through stage 4 chronic kidney disease, or unspecified chronic kidney disease; E11.22 Type 2 diabetes mellitus with diabetic chronic kidney disease; N18.3 Chronic kidney disease, stage 3 (moderate); E55.9 Vitamin D deficiency, unspecified; M79.2 Neuralgia and neuritis, unspecified; Z79.4 Long term (current) use of insulin; Z79.899 Other long term (current) drug therapy ==

== ENCOUNTER → 2019-03-07 | Outpatient (CLI) | payer MEDICARE ==
[~2019-03-07] MED LIST changes: -CARVEDILOL12.5 MG PO; +CARVEDILOL25 MG PO; +Lasix80 MG PO; +NIFEDIPINE ER60 M1 PO; +OMEPRAZOLE MAGN20 MG PO; +OXYCODONE HCL5 MG PO; -TIZANIDINE HCL2 MG PO; +ZANAFLEX CAPSULE2 MG PO
[2019-03-07 15:27] LABS: CREATININE 2.86 mg/dL (0.70-1.30); POTASSIUM 3.6 mmol/L (3.5-5.1)
== END | disposition home or self-care (01) ==
LOC: RESCLI 02:04
PROVIDERS: Internal Medicine
DX: M79.2 Neuralgia and neuritis, unspecified (principal); E55.9 Vitamin D deficiency, unspecified; E11.9 Type 2 diabetes mellitus without complications; B18.2 Chronic viral hepatitis C; I12.9 Hypertensive chronic kidney disease with stage 1 through stage 4 chronic kidney disease, or unspecified chronic kidney disease; N18.4 Chronic kidney disease, stage 4 (severe); R60.9 Edema, unspecified; R11.0 Nausea; Z79.899 Other long term (current) drug therapy

== ENCOUNTER → 2019-03-19 | Outpatient (CLI) | payer MEDICARE | END | disposition home or self-care (01) | LOC: RESCLI 09:06 | DX: I12.9 Hypertensive chronic kidney disease with stage 1 through stage 4 chronic kidney disease, or unspecified chronic kidney disease (principal); E11.22 Type 2 diabetes mellitus with diabetic chronic kidney disease; N18.4 Chronic kidney disease, stage 4 (severe); R60.9 Edema, unspecified; R11.0 Nausea; N40.0 Benign prostatic hyperplasia without lower urinary tract symptoms; E55.9 Vitamin D deficiency, unspecified; B18.2 Chronic viral hepatitis C; J45.909 Unspecified asthma, uncomplicated; Z79.899 Other long term (current) drug therapy ==

== ENCOUNTER 2019-04-08 15:47 | Inpatient (IN) | payer MEDICARE ==
[~2019-04-08] VITALS: Ht 177.8 cm; Wt 230.2 kg
--- NOTE | ~2019-04-08 | EKG ---
[place], [place] ELECTROCARDIOGRAM REPORT NAME: BENSON LANDA UNIT #: [id number] ROOM: [facility] DOCTOR: LINDA DRAFT REPORT BIRTHDATE: [birth year] [facility] Test Date: 2019-04-08 Test Time: 19:17:11 Pat Name: BENSON LANDA Department: Room: [facility] Gender: M Director Employment: : 1965 Requested By: DOLLY ZUÑIGA Order Number: [id number] Reading MD: Jem Cobian Measurements Intervals [place] Rate: 86 P: 40 NM: 156 QRS: -14 QRSD: 113 T: 55 QT: 389 QTc: 466 Interpretive Statements Sinus rhythm Borderline intraventricular conduction delay Electronically Signed On 04-09-2019 11:15:31 PST by Jem Cobian CM:EKGRPT:ELECTROCARDIOGRAM REPORT [id number] 1115 DOLLY MCKEON DRAFT REPORT DOLLY ZUÑIGA MD
--- NOTE | ~2019-04-08 | EKG ---
[place], [place] ELECTROCARDIOGRAM REPORT NAME: BENSON LANDA UNIT #: [id number] ROOM: [facility] DOCTOR: LINDA DRAFT REPORT BIRTHDATE: [birth year] [facility] Test Date: 2019-04-08 Test Time: 22:42:47 Pat Name: BENSON LANDA Department: Room: [facility] Gender: M [employer] Mill Operator: : 1965 Requested By: DOLLY ZUÑIGA Order Number: [id number] Reading MD: Jem Cobian Measurements Intervals [place] Rate: 72 P: 33 NM: 133 QRS: -12 QRSD: 111 T: 41 QT: 416 QTc: 456 Interpretive Statements Sinus rhythm Baseline wander in lead(s) V6 Electronically Signed On 04-09-2019 11:16:55 PST by Jem Cobian CM:EKGRPT:ELECTROCARDIOGRAM REPORT [id number] DOLLY MCKEON DRAFT REPORT DOLLY ZUÑIGA MD
--- NOTE | ~2019-04-08 | EKG ---
[place], [place] ELECTROCARDIOGRAM REPORT NAME: BENSON LANDA UNIT #: [id number] ROOM: [facility] DOCTOR: LINDA DRAFT REPORT BIRTHDATE: [birth year] [facility] Test Date: 2019-04-08 Test Time: 16:11:08 Pat Name: BENSON LANDA Department: Room: [facility] Gender: M Software Engineer Advisor: : 1965 Requested By: DOLLY ZUÑIGA Order Number: [id number] Reading MD: Jem Cobian Measurements Intervals [place] Rate: 83 P: 44 [place]: 150 QRS: -14 QRSD: 111 T: 39 QT: 404 QTc: 475 Interpretive Statements Sinus rhythm Incomplete left bundle branch block Baseline wander in lead(s) V4 Electronically Signed On 04-09-2019 11:13:26 PST by Jem Cobian CM:EKGRPT:ELECTROCARDIOGRAM REPORT [id number] DOLLY MCKEON DRAFT REPORT DOLLY ZUÑIGA MD
--- NOTE | ~2019-04-08 | CON ---
[place], [place] REPORT OF CONSULTATION NAME: BENSON LANDA UNIT #: [id number] ROOM: [facility] DOCTOR: MILDRED POTTS MD BIRTHDATE: [birth year] DOS: 04/09/2019 PULMONARY CRITICAL CARE CONSULTATION, EVALUATION, AND MANAGEMENT CONSULTATION REQUESTED BY: Hospitalist service. REASON FOR CONSULTATION: Acute respiratory failure, possibility of pneumonia. HISTORY OF PRESENT ILLNESS: This is a 53-year-old white male patient presented to the hospital and hospitalized on the date of 04/08/2019. The patient presented to the Emergency Room as the patient has been noted progressive shortness of breath. He stated that he has been sick couple of weeks or more with severe worsening of the respiratory symptoms, have been occurring for the past 3 to 4 days. Symptoms have been noted gradually increased. He presented to the Emergency noted with severe hypoxia. The patient has been admitted to the hospital. He has been receiving high amount of oxygen supplementation. The patient has been requiring gradual increase in oxygen requirement, the patient is on the BiPAP. He has been able to give me any history, has been asked questions. The patient does report symptoms of cough with small amount of yellow sputum expectoration at times. Denies symptoms of chest pain or any hemoptysis. Denies symptoms of significant wheezing or chest tightness. REVIEW OF SYSTEMS: CONSTITUTIONAL SYMPTOMS: Fatigue and tiredness reported. Denies symptoms of fever or chills. EYES: Denies any burning, redness, or tenderness. EARS, NOSE, THROAT SYMPTOMS: No sore throat, hoarseness, otalgia, postnasal drainage. GASTROINTESTINAL SYMPTOMS: Denies dysphagia, nausea, vomiting, diarrhea, abdominal pain, hematemesis, melena, or hematochezia. SKIN: Denies abnormal lesions or rashes. EXTREMITIES: Chronic changes of the lower extremity noted with edema as well. MUSCULOSKELETAL: Denies any acute joint pain, redness, or tenderness. Remaining systems were reviewed with the patient, they were noted all negative. PAST MEDICAL HISTORY: 1. The patient's records of 2018 treated for wound infection of the foot. 2. Known for Gwuelsv-Ycbec-Yrfrk disease. 3. Severe morbid obesity. 4. History of type 2 diabetes mellitus. 5. Essential hypertension. 6. Decreased mobility. The patient usually uses a wheelchair at home and not ambulating independently. 7. Hyperlipidemia. 8. Appendectomy. 9. History of osteomyelitis of the toes, required amputation. 10. Advanced morbid obesity. 11. History of chronic kidney disease, stated he has been monitored by Nephrology, Dr. Craig for that. [place], [place] REPORT OF CONSULTATION NAME: BENSON LANDA UNIT #: [id number] ROOM: [facility] DOCTOR: NATALIIA BARRETT MD,[facility] BIRTHDATE: [birth year] PAST SURGICAL HISTORY: 1. The patient noted surgery of the feet in the past as well as amputation of left great toe and debridement of the wound of the foot. 2. I and D of certain skin area of lesion and abscesses. SOCIAL HISTORY: The patient is , does not have any children, noted nonsmoker lifetime. There is no history of alcohol or illicit drug use reported. FAMILY HISTORY: The patient's father a 77-year-old with complications of lung cancer. CURRENT MEDICATIONS: Which has been administered were noted as DuoNeb q. 4 hours, Lasix 40 mg IV b.i.d., Coreg 25 mg b.i.d, sliding insulin coverage, and intravenous heparin. DRUG ALLERGIES: BACTRIM. PHYSICAL EXAMINATION: GENERAL: This is a 53-year-old male patient who has been currently using BiPAP. Height of 5 feet 10 inches, weight of 509 pounds with 80% ____ with BMI over 73. His BMI in 2011, I have seen the patient only that time noted with a BMI of 57 at that time. VITAL SIGNS: Which has been recorded showed the temperature noted as normal. The respiratory rate recorded at 22 - 21, heart rate of 86 - 80, blood pressure 189/73 - 160/82. Pulse oxygen saturation recorded to 85% oxygen with BiPAP was 94% saturation. HEENT: Examination shows head was atraumatic. Eyes nonicterus. Severe decreased posterior pharyngeal space. Head was atraumatic. CARDIOVASCULAR: S1, S2 audible. LUNGS: Noted diffuse reduction in breath sounds, limited auscultation because of severe morbid obesity and inability to move. Anterolateral auscultation noted without any wheezing, questionable crackles were heard. ABDOMEN: Noted severe morbid obesity. EXTREMITIES: Noted chronic severe changes dryness of the skin with superimposed edema possible chronic lymphedema was also suspected. MUSCULOSKELETAL: Without any gross deformities visible. CENTRAL NERVOUS SYSTEM: The patient noted awake and alert without any gross focal neurologic deficit. Limited exam. LABORATORY DATA: Arterial blood gas that was done on 04/08/2019, pH of 7.30, pCO2 of 43, pO2 169, 100% nonrebreather mask. CBC on 04/08/2019; WBC count normal, hemoglobin 11.6, platelet count 329,000, ketones noted negative on admission. PT/PTT yesterday noted as negative study. Lactic acid 1.5 yesterday. CMP: BUN 47 and creatinine 3.94, glucose 261. ProBNP 5640. The chest x-ray shows diffuse interstitial infiltration of the lungs. Arterial blood gas at admission last evening, pH of 7.31, pCO2 of 46.9, pO2 of 78 on 80% oxygen with BiPAP. Another arterial blood gas done this morning to 85% oxygen, pH of 7.33, pCO2 of 47, pO2 69.5. CBC that was done this morning: WBC count [place], [place] REPORT OF CONSULTATION NAME: BESNON LANDA UNIT #: [id number] ROOM: [facility] DOCTOR: NATALIIA BARRETT MD,[facility] BIRTHDATE: [birth year] normal, hemoglobin normal, platelet count was normal. PTT was noted 97, which is above the therapeutic range. CMP this morning, BUN 48, creatinine 2.79, glucose 206 and albumin 1.9. IMPRESSION: 1. The patient will be currently admitted to the hospital with severe acute hypoxemic respiratory failure with evidence of metabolic acidosis, most likely related to acute on chronic kidney injury with interstitial edema with a differential of congestive heart failure with acute heart failure with preserved ejection fraction. 2. Severe morbid obesity. There was no clinical suspicion of acute infection at this time. 3. Advanced severe morbid obesity as well, possible consideration of ARDS, but the diagnosis cannot be established because that the patient not noted on mechanical ventilator. 4. History of type 2 diabetes mellitus and multiple medical illnesses. PLAN OF MANAGEMENT: Discussion has been made for further medical management. One of it would be to intubate for mechanical ventilation, the patient agreed for that. After intubation, cultures will be obtained. Diuresis to be continued. Nephrology services has been ordered, which was pending. Bronchodilators may be used to help mobilize secretions post-intubation. All the ventilator bundle management initiated including the sedation with IV Diprivan and Versed. The patient will be started on pyrodextrin as well as atrophic feeding. DVT prophylaxis was ordered yesterday, which was therapeutic anticoagulation with the heparin. However, the reason of the use of therapeutic heparin at this time was unclear to me. Antibiotic will be started if there is any suspicion for infection arises. His problem is noted very complicated, patient possible transfer to tertiary care hospital might be considered post-intubation if necessary. All other care, plan of management. Prognosis of the patient is currently guarded and critical. This is understood by the patient as well. Pulmonary critical care evaluation and management was 43 minutes. MILDRED WILLIAM MD CM:CONSTR:REPORT OF CONSULTATION 1145 04/09/19 1551 interface
[~2019-04-08 15:47] MED LIST changes: -Lasix80 MG PO; -NIFEDIPINE ER60 M1 PO; -OMEPRAZOLE MAGN20 MG PO; -OXYCODONE HCL5 MG PO
[2019-04-08 16:07] LABS: ABG BASE EXCESS -4.4 mmol/L (-2.0-2.0); ABG HCO3 21.2 mmol/l (22-26); ABG O2 SATURATION 99.5 % (95-97); ARTERIAL BLOOD GAS PCO2 43.5 mmHg (35-45); ARTERIAL BLOOD GAS PH 7.309 (7.35-7.45)
[2019-04-08 16:17] LABS: BASO % 0.4 % (0.0-1.0); EOS # 0.3 10*3/uL (0.0-0.4); EOS % 3.5 % (1.0-4.0); HEMOGLOBIN 11.6 g/dl (14.0-18.0); LYMPH # 1.1 10*3/uL (1.3-4.4); MEAN CELL VOLUME 97.6 fl (80.0-94.0); MEAN CORPUSCULAR HGB 31.4 pg (27.0-31.0); MEAN CORPUSCULAR HGB CONC 32.2 g/dl (33.0-37.0); MEAN PLATELET VOLUME 9.2 fl (9.6-12.3); MONO # 0.6 10*3/uL (0.1-1.0); MONO % 5.9 % (3.0-9.0); NEUT # 7.2 10*3/uL (2.3-7.9); NEUT % 76.6 % (47.0-73.0); PLATELET COUNT AUTOMATED 329 10*3/uL (130-400); RED BLOOD COUNT 3.69 10*6/uL (4.50-5.90); RED CELL DISTRI WIDTH 13.2 % (0-14.5); WHITE BLOOD COUNT 9.3 10*3/uL (4.8-10.8)
[2019-04-08 16:28] LABS: ACT PARTIAL THROMBO TIME 27.5 SECONDS (20.0-32.1)
[2019-04-08 16:37] LABS: ALBUMIN 2.3 gm/dl (3.1-4.5); ALKALINE PHOSPHATASE 73 U/L (45-117); BUN 47 mg/dl (7-24); CHLORIDE 106 mmol/L (98-107); CREATININE 3.94 mg/dL (0.70-1.30); POTASSIUM 3.8 mmol/L (3.5-5.1); SGOT/AST 24 IU/L (3-35); SGPT/ALT 18 U/L (12-78); SODIUM 137 mmol/L (136-145); TOTAL PROTEIN 6.9 gm/dL (6.4-8.2)
[2019-04-08 16:40] LABS: TROPONIN I < 0.015 ng/ml (<0.045)
[2019-04-08 17:13] VITALS: BP 189/73
[2019-04-08 17:17] LABS: BILIRUBIN NEGATIVE (NEGATIVE); BLOOD 1+ (NEGATIVE); CLARITY SL CLOUDY (CLEAR); COLOR YELLOW (YELLOW); GLUCOSE 1+ (NEGATIVE); KETONE TRACE (NEGATIVE); LEUKO ESTERASE NEGATIVE (NEGATIVE); NITRITE NEGATIVE (NEGATIVE); SPECIFIC GRAVITY 1.025 (1.005-1.030); UROBILINOGEN 0.2 E.U./dl (0.2-1.0)
[2019-04-08 17:25] LABS: EPITHELIAL CELLS 0-2; RBC 0-2 rbc/hpf (0-2)
[2019-04-08 17:26] LABS: BACTERIA 2+
[2019-04-08 17:49] VITALS: BP 175/76
[2019-04-08 18:02] VITALS: BP 155/99
--- NOTE | 2019-04-08 18:10 | NUR ---
PT RESTING IN BED. DOES NOT APPEAR ANXIOUS AT THIS TIME.
--- NOTE | 2019-04-08 18:15 | NUR ---
REDNESS AND IRRITATION NOTED TO PTS GROIN. NO OPEN WOUNDS
--- NOTE | 2019-04-08 18:40 | NUR ---
LARGE SCABBED AREAS NOTED TO PTS BILATERAL LATERAL ASPECT OF THIGHS.
[2019-04-08 19:00] VITALS: BP 170/65
--- NOTE | 2019-04-08 19:00 | NUR ---
A 53, admitted to ICCU, under the services of PEE Camacho DO with a diagnosis of CHF, ACUTE RESP FAILURE WITH HYPOXIA. Chief complaint is SOB AND PRODUCTIVE COUGH. Patient arrived via stretcher from ER. Monitor applied. Initial assessment completed. Vital signs taken and recorded. PEE CAMACHO DO notified of admission to the unit. Orders received. See assessment for past medical history, medications and allergies. Patient and/or family oriented to unit. [facility] visitation policy reviewed. Clothing/patient valuable form completed. LUIS CARABALLO
[2019-04-08] MEDS ORDERED: NIFEDIPINE ER60 M1 PO (19:22)
[2019-04-08] MEDS ORDERED: OXYCODONE HCL5 MG PO (19:24)
[2019-04-08] MEDS ORDERED: TERAZOSIN HCL5 M1 PO (19:24)
[2019-04-08] MEDS ORDERED: OMEPRAZOLE MAGN20 MG PO (19:25)
[2019-04-08] MEDS ORDERED: Lasix80 MG PO (19:26)
[2019-04-08 20:00] VITALS: BP 170/65
[2019-04-08 20:15] LABS: ABG BASE EXCESS -2.5 mmol/L (-2.0-2.0); ABG HCO3 22.9 mmol/l (22-26); ABG O2 SATURATION 94.4 % (95-97); ARTERIAL BLOOD GAS PCO2 46.9 mmHg (35-45); ARTERIAL BLOOD GAS PH 7.315 (7.35-7.45); ARTERIAL BLOOD GAS PO2 78.1 mmHg (80-90)
--- NOTE | 2019-04-08 20:25 | NUR ---
DR WILLIAM NOTIFIED OF CONSULT. ORDERS FOR PORTABLE CXR AND ABG'S IN AM.
[2019-04-09] VITALS (7 sets, daily range): BP systolic 112–160; BP diastolic 56–82
[2019-04-09 07:35] LABS: ABG BASE EXCESS -0.9 mmol/L (-2.0-2.0); ABG HCO3 24.6 mmol/l (22-26); ABG O2 SATURATION 92.9 % (95-97); ARTERIAL BLOOD GAS PCO2 47.2 mmHg (35-45); ARTERIAL BLOOD GAS PH 7.337 (7.35-7.45); ARTERIAL BLOOD GAS PO2 65.9 mmHg (80-90)
[2019-04-09 07:46] LABS: BASO % 0.4 % (0.0-1.0); EOS # 0.3 10*3/uL (0.0-0.4); EOS % 4.4 % (1.0-4.0); HEMATOCRIT 32.1 % (42.0-52.0); HEMOGLOBIN 10.1 g/dl (14.0-18.0); LYMPH # 1.3 10*3/uL (1.3-4.4); LYMPH % 17.4 % (27.0-41.0); MEAN CORPUSCULAR HGB 31.5 pg (27.0-31.0); MEAN CORPUSCULAR HGB CONC 31.5 g/dl (33.0-37.0); MEAN PLATELET VOLUME 9.2 fl (9.6-12.3); MONO # 0.5 10*3/uL (0.1-1.0); MONO % 6.1 % (3.0-9.0); NEUT # 5.3 10*3/uL (2.3-7.9); NEUT % 70.5 % (47.0-73.0); PLATELET COUNT AUTOMATED 277 10*3/uL (130-400); RED BLOOD COUNT 3.21 10*6/uL (4.50-5.90); RED CELL DISTRI WIDTH 13.3 % (0-14.5); WHITE BLOOD COUNT 7.5 10*3/uL (4.8-10.8)
--- NOTE | 2019-04-09 08:00 | NUR ---
AWAKE AND ALERT, COOPERATIVE, PLEASANT CARTS AND [facility]IDENT [facility] APPS HAVE BEEN CANCELLED PER PT REQUEST REMAINS ON BIPAP, TRIED PT ON HFNL AND DESAT TO 84 AND WAS "WORKING" TO BREATH, RETURNED TO BIPAP, RESP WILL TRY OPTIFLO OXYGEN TO ALLOW PT TO EAT HEPARIN DRIP PTT IS 90.7, TURNED OFF AT 0830, RESUME AT 0930 PT UNABLE TO MOVE WELL PT FILLS THE BED SIDE TO SIDE, PT ABLE TO SIT UP PARTIALLY TO READJUST PILLOWS, WOUND CARE HERE, PT WITH CHRONIC SKIN CHANGES SUKHDEV LOWER LEGS DUE TO OBESITY AND NON COMPLIANCE, NICOLA SECURE, AWAITINGBREAKFAST
[2019-04-09 08:02] LABS: ALBUMIN 1.9 gm/dl (3.1-4.5); CREATININE 3.79 mg/dL (0.70-1.30); PHOSPHOROUS 4.5 mg/dL (2.5-4.9); POTASSIUM 3.7 mmol/L (3.5-5.1)
--- NOTE | 2019-04-09 08:09 | NUR ---
Occupational therapy orders received as well as nursing screen. Will follow up with patient for completion of OT eval. Thank you. Laura Kahn OTR/L
--- NOTE | 2019-04-09 09:05 | NUR ---
DR WILLIAM HERE AND SPOKE WITH PT, CONSENTS SIGNED FOR INTUBATION AND CENTRAL LINE PLACEMENTM ATTEMPTED TO CALL [facility] AND THERE IS NO ANSWER
--- NOTE | 2019-04-09 09:15 | NUR ---
INTUBATED BY ANESTHESIA, PT TOLERATED PROCEDURE FAIR POS ONLY MAINTAINING AT 85-88 %, NGT PLACED, CXR DONE
--- NOTE | 2019-04-09 09:28 | NUR ---
BENSON LANDA Shelia [id number] Please refer to the physician's history and physical for past medical history, comorbid conditions, and allergies. Diagnosis: CHF ACUTE RESPIRATORY FAILURE WITH HYPOXIA Jewel Score: 11,HIGH RISK WOUND DESCRIPTIONS: Wound Number: 1 Location of the wound: right heel Type of wound: unstageable Thickness: Full Size: 2.5cm x 1.8cm x 0.7cm Tunneling: none Undermining: none Sinus Tract: none Presence of Exudate: Serous sanguineous Amount: Moderate Color: Yellow, Brown, Red Odor: None Periwound Skin Appearance: Pale Wound edges: approximated Pain (associated with wound): denied at time of assessment How does patient state this happened? patient states that this has been going on for over a year. If wound is on legs/feet or hands, capillary refill time, pulses, color temp, sensation: cap refill <3 seconds. Wound Number: 2 Location of the wound: left buttock Type of wound: stage 2 Thickness: Partial Size: 1cm x 0.6cm x 0.1cm Tunneling: none Undermining: none Sinus Tract: none Presence of Exudate: Serous sanguineous Amount: Light Color: Red Odor: None Periwound Skin Appearance: Erythema Wound edges: approximated Pain (associated with wound): denied at time of assessment How does patient state this happened? patient unsure how this happened. Wound Number: 3 Location of the wound: right outer thigh Thickness: Partial Size: 15cm x 9cm x 0.1cm Tunneling: none Undermining: none Sinus Tract: none Presence of Exudate: Serous Amount: Light Color: Red Odor: None Periwound Skin Appearance: Edema Wound edges: approximated Pain (associated with wound): denied at time of assessment How does patient state this happened? patient states this occurred when he started taking lasix. Wound Number: 4 Location of the wound: right outer lower leg Thickness: Partial Size: 12.5cm x 8.5cm x 0.1cm Tunneling: none Undermining: none Sinus Tract: none Presence of Exudate: Serous Amount: Light Color: Red Odor: None Periwound Skin Appearance: Edema Wound edges: approximated Pain (associated with wound): denied at time of assessment How does patient state this happened? patient states this occurred when he started taking lasix. Surface the patient is resting on: Rental SKIN PREVENTION RECOMMENDATION: 1. Pressure redistribution support surface as appropriate 2. Elevate heels 3. Remove boots/TEDS every shift and reapply 4. Head of bed 30 degrees as tolerated 5. Assess nutrition and hydration 6. Manage moisture 7. Avoid the use of containment devices while in bed 8. Use absorptive products on surfaces limit layers of linens on bed 9. Turn and reposition every 1-2 hours in bed and every 1 hour in chair as tolerated 10. Weight shifts every 15 minutes while up in chair 11. Offloading with pillows or device to keep heels elevated off bed 12. Monitor skin at least every shift 13. Inspect under medical devices twice a day WOUND TREATMENT RECOMMENDATIONS: Consult Dr. Christy for right heel since patient [facility]. Partial thickness guidelines to right outer thigh and right outer lower leg: Cleanse with nss apply sureprep allow to dry apply therahoney sheet cover with DSD. Change every two days and prn soiling. Stage 2 guidelines to left buttock: Cleanse with nss apply sureprep around the wound allow to dry apply hydrogel to wound bed and cover with optifoam gentle. Change every two days and prn soiling. Stage 3 guidelines to right heel: Cleanse with nss apply sureprep around the wound allow to dry loosely pack with maxorb rope and cover with optifoam gentle. Change every two days and prn soiling.
--- NOTE | 2019-04-09 10:30 | NUR ---
case management unable to visit with patient at this time, patient on a vent, discharge plan is undetermined at this time
--- NOTE | 2019-04-09 10:52 | NUR ---
POX DESAT TO 74-75% WITH GOOD WAVE FORM RESP HERE, ABCL[place]TON DRAWN
--- NOTE | 2019-04-09 11:00 | NUR ---
PHYSICAL THERAPY Pt intubated. Will assess when medically appropriate. thank you Jacey Craft, PT, DPT
[2019-04-09 11:17] LABS: ABG BASE EXCESS -1.1 mmol/L (-2.0-2.0); ABG HCO3 24.7 mmol/l (22-26); ABG O2 SATURATION 86.3 % (95-97); ARTERIAL BLOOD GAS PH 7.315 (7.35-7.45); ARTERIAL BLOOD GAS PO2 53.9 mmHg (80-90)
--- NOTE | 2019-04-09 11:37 | NUR ---
ISAIAH CALLED TO DR WILLIAM
--- NOTE | 2019-04-09 12:30 | NUR ---
REPORT TO [facility]
--- NOTE | 2019-04-09 13:47 | NUR ---
EXTRA BOTTLES OF DIPROVAN GIVEN TO STAT PER THEIR REQUEST FOR TRANSPORT
--- NOTE | 2019-04-09 13:48 | NUR ---
BAG OF HEPARIN GIVEN TO TRANSPORT PER THEIR REQUEST
--- NOTE | 2019-04-09 14:00 | NUR ---
Occupational therapy orders received and chart reviewed. Per nursing, patient was in the process of being transferred out of [facility]. Thank you. Laura Kahn, OTR/L
--- NOTE | 2019-04-09 14:40 | NUR ---
PHYSICAL THERAPY Pt currently being discharged. Thank you Jacey Craft, PT, DPT
--- NOTE | 2019-04-09 14:50 | NUR ---
TRANSFERRED BY STAT TO [facility] AWARE OF TRANSFER ALL PT BELONGINGS SENT WITH PT
== END 2019-04-09 15:24 | disposition short-term general hospital (02) | DRG 208 ==
LOC: ED 15:47 → EDHOLD 17:11 → ICCU 17:11
PROVIDERS: Emergency Medicine; Internal Medicine Critical Care Medicine; Student in an Organized Health Care Education/Training Program; ADMIT Emergency Medicine
PROC: 5A09357 Assistance with Respiratory Ventilation, Less than 24 Consecutive Hours, Continuous Positive Airway Pressure (ICD-10-PCS; principal; 2019-04-08)
PROC: 0BH17EZ Insertion of Endotracheal Airway into Trachea, Via Natural or Artificial Opening (ICD-10-PCS; principal; 2019-04-08)
PROC: B548ZZA Ultrasonography of Superior Vena Cava, Guidance (ICD-10-PCS; 2019-04-09)
PROC: 5A1935Z Respiratory Ventilation, Less than 24 Consecutive Hours (ICD-10-PCS; 2019-04-09)
PROC: 02HV33Z Insertion of Infusion Device into Superior Vena Cava, Percutaneous Approach (ICD-10-PCS; 2019-04-09)
DX: J96.01 Acute respiratory failure with hypoxia (principal); I50.33 Acute on chronic diastolic (congestive) heart failure; E43 Unspecified severe protein-calorie malnutrition; J18.9 Pneumonia, unspecified organism; N17.9 Acute kidney failure, unspecified; E87.2 Acidosis; N39.0 Urinary tract infection, site not specified; I13.0 Hypertensive heart and chronic kidney disease with heart failure and stage 1 through stage 4 chronic kidney disease, or unspecified chronic kidney disease; N18.4 Chronic kidney disease, stage 4 (severe); D53.9 Nutritional anemia, unspecified; E78.5 Hyperlipidemia, unspecified; E11.65 Type 2 diabetes mellitus with hyperglycemia; E83.41 Hypermagnesemia; E66.01 Morbid (severe) obesity due to excess calories; E83.51 Hypocalcemia; E11.22 Type 2 diabetes mellitus with diabetic chronic kidney disease; E11.40 Type 2 diabetes mellitus with diabetic neuropathy, unspecified; M17.11 Unilateral primary osteoarthritis, right knee; Z88.1 Allergy status to other antibiotic agents; Z86.711 Personal history of pulmonary embolism; Z82.49 Family history of ischemic heart disease and other diseases of the circulatory system; Z80.1 Family history of malignant neoplasm of trachea, bronchus and lung; Z99.81 Dependence on supplemental oxygen; Z90.49 Acquired absence of other specified parts of digestive tract; Z79.4 Long term (current) use of insulin